=== PATIENT | male | born 1975 | race Two or more races ===

== ENCOUNTER 2019-06-03 07:00 | Day surgery (SDC) | payer OTHER ==
[~2019-06-03] VITALS: Ht 172.7 cm; Wt 80.7 kg
[~2019-06-03 07:00] MED LIST: TRAMADOL HCL50 MG PO; [UNRECOGNIZED DRUG - OTHER] PO
== END 2019-06-04 08:00 | disposition home or self-care (01) ==
LOC: CIR.AMB 07:00 → O/R 07:50 → SURH 07:50 → O/R 13:32 → SURH 13:32 → CIR.AMB 06-04 08:00 → SURH 06-04 14:09 → O/R 06-04 14:09
DX: E65 Localized adiposity (principal); L98.7 Excessive and redundant skin and subcutaneous tissue; N62 Hypertrophy of breast; Z98.84 Bariatric surgery status